=== PATIENT | female | born 1940 | race Caucasian/White ===

== ENCOUNTER 2019-05-05 17:35 | Emergency (ER) | payer OTHER, MEDICAID ==
[~2019-05-05] VITALS: Ht 157.5 cm; Wt 70.0 kg
[~2019-05-05 17:35] MED LIST: AMLO-147 PO; BENA40TA56 PO; CIPR500T4 PO; HYDR-762 PO; MECL25TA2 PO; METF-480 PO; ONDA4TAB35 PO; SIMV10TA PO
[2019-05-05 17:40] VITALS: Ht 157.5 cm; Wt 70.0 kg
--- NOTE | 2019-05-05 19:02 | ERD ---
ER Documentation Chief Complaint Chief Complaint bilateral eyes redness and pain/ vomitting; dizziness HPI 78-year-old female history of CVA, diabetes, hypertension and hyperlipidemia presents to the ED complaining of dizziness with nausea and vomiting. Patient was in her usual state of health until approximately 2 weeks ago when she developed redness and itching to both her eyes. Denies visual changes or pain. She was seen in urgent care twice and diagnosed with allergic conjunctivitis and treated with "drops" but symptoms have not improved significantly. Last night experience subjective fevers and chills. Denies URI symptoms, shortness of breath, cough. No dysuria, polyuria, hematuria or flank pain. This afternoon his periods acute onset of dizziness which she describes as the room spinning with nausea and one episode of nonbloody nonbilious emesis. Symptoms are slightly relieved by immobility with her eyes closed and worsened with head movement. Mild, occipital headache but denies focal weakness or numbness. ROS All systems reviewed and are negative except as per history of present illness. Medications Home Meds Active Scripts Meclizine Hcl* (Antivert*) 25 Mg Tablet, 25 MG PO Q6H PRN for dizziness, #10 TAB Prov:DANIEL NEWTON MD 02/29/16 Ondansetron Hcl* (Zofran* ODT) 4 mg -ODT Tab.disper, 4 MG PO Q6 PRN for NAUSEA AND/OR VOMITING, #30 TAB Prov:DANIEL NEWTON MD 02/29/16 Hydrocodone Bit-Acetaminophen* ([place]*) 10-325 Mg Tablet, 1 TAB PO Q6 PRN for PAIN, #7 TAB Prov:DANIEL NEWTON MD 02/29/16 Ciprofloxacin Hcl* (Ciprofloxacin Hcl*) 500 Mg Tablet, 500 MG PO BID for 7 Days, TAB Prov:DANIEL NEWTON MD 02/29/16 Reported Medications Amlodipine Besylate* (Amlodipine Besylate*) 10 Mg Tablet, 10 MG PO DAILY, #30 TAB 02/29/16 Benazepril Hcl* (Benazepril Hcl*) 40 Mg Tablet, 40 MG PO DAILY, #30 TAB 02/29/16 Simvastatin* (Zocor*) 10 Mg Tablet, 10 MG PO QHS, #30 TAB 02/29/16 Metformin* (Glucophage*) 850 Mg Tablet, 850 MG PO BID WITH MEALS, #30 TAB 02/29/16 Allergies Allergies: Coded Allergies: No Known Allergy (Unverified , 02/29/16) PMhx/Soc Reviewed in chart. As per HPI. History of Surgery: Yes (, gallbladder, appendix) Hx Cardiac Disorders: Yes (htn) Hx Miscellaneous Medical Probl: Yes (dm) Hx Alcohol Use: No Hx Substance Use: No Hx Tobacco Use: No Smoking Status: Never smoker FmHx No sudden cardiac or cancer Physical Exam Vitals Vital Signs Date Temp Pulse Resp B/P (MAP) Pulse Ox O2 O2 Flow FiO2 Time Delivery Rate 05/05/19 56 16 135/65 100 Room Air 21:35 (88) 05/05/19 98.6 76 20 125/63 97 17:40 (83) Physical Exam Const: Mild distress. Head: Atraumatic Eyes: Bilateral conjunctival injection. Pupils equal react to light. Extraocular movements are intact. No nystagmus. Bilateral arcus senilis. ENT: Normal External Ears, Nose and Mouth. Neck: Full range of motion. Carotids 2+ bilaterally without bruits. No JVD. No meningismus. Resp: Breath sounds are equal and clear to auscultation bilaterally Cardio: Regular rate and rhythm, no murmurs Abd: Soft, non tender, non distended. Normal bowel sounds Skin: No petechiae or rashes Back: No midline or flank tenderness Ext: No cyanosis, or edema Neur: Awake and alert. Cranial nerves II through XII are grossly intact. Motor and sensory equal bilaterally. No dysdiadochokinesis. Psych: Anxious but not depressed. Result Diagram: 05/05/19193905/05/191939 Results 24 hrs Laboratory Tests Test 05/05/19 19:40 05/05/19 19:47 White Blood Count 9.3 10^3/ul Red Blood Count 4.20 10^6/ul Hemoglobin 13.5 g/dl Hematocrit 39.8 % Mean Corpuscular Volume 94.8 fl Mean Corpuscular Hemoglobin 32.1 pg Mean Corpuscular Hemoglobin Concent 33.9 g/dl Red Cell Distribution Width 12.3 % Platelet Count 340 10^3/UL Mean Platelet Volume 8.4 fl Immature Granulocytes % 0.300 % Neutrophils % 62.9 % Lymphocytes % 28.0 % Monocytes % 7.4 % Eosinophils % 1.1 % Basophils % 0.3 % Nucleated Red Blood Cells % 0.0 /100WBC Immature Granulocytes # 0.030 10^3/ul Neutrophils # 5.9 10^3/ul Lymphocytes # 2.6 10^3/ul Monocytes # 0.7 10^3/ul Eosinophils # 0.1 10^3/ul Basophils # 0.0 10^3/ul Nucleated Red Blood Cells # 0.0 10^3/ul Erythrocyte Sedimentation Rate 32 mm/Hr Urine Color ZEN Urine Clarity CLOUDY Urine pH 5.0 Urine Specific [place] 1.017 Urine Ketones NEGATIVE mg/dL Urine Nitrite NEGATIVE mg/dL Urine Bilirubin NEGATIVE mg/dL Urine Urobilinogen NEGATIVE mg/dL Urine Leukocyte Esterase 3+ Mata/ul Urine Microscopic RBC 35 /HPF Urine Microscopic WBC 131 /HPF Urine Squamous Epithelial Cells MODERATE /HPF Urine Bacteria FEW /HPF Urine Mucus FEW /HPF Urine Hemoglobin NEGATIVE mg/dL Urine Glucose NEGATIVE mg/dL Urine Total Protein NEGATIVE mg/dl Sodium Level 138 mmol/L Potassium Level 3.9 mmol/L Chloride Level 102 mmol/L Carbon Dioxide Level 27 mmol/L Anion Gap 9 Blood Urea Nitrogen 16 mg/dl Creatinine 1.25 mg/dl Est Glomerular Filtrat Rate mL/min mL/min Glucose Level 133 mg/dl Calcium Level 8.8 mg/dl Troponin I < 0.012 ng/ml Bedside Glucose 132 mg/dL Current Medications Medications Dose Sig/Cari Start Time Status Last (Trade) Ordered Route PRN Stop Time Admin Dose Reason Admin Sodium 500 ml @ Q1H STAT 05/05/19 DC 05/05/19 Chloride 500 mls/hr IV 19:21 19:37 05/05/19 20:20 Ondansetron 4 mg ONCE STAT 05/05/19 DC 05/05/19 HCl (Zofran IV 19:21 19:37 Inj) 05/05/19 19:24 Ketorolac 10 mg ONCE STAT 05/05/19 DC 05/05/19 Tromethamine IV 19:21 19:37 (Toradol) 05/05/19 19:24 Meclizine 25 mg ONCE ONCE 05/05/19 DC 05/05/19 HCl PO 19:30 19:37 (Antivert) 05/05/19 19:31 Ceftriaxone 50 ml @ ONCE ONCE 05/05/19 DC 05/05/19 Sodium 100 mls/hr IVPB 21:30 21:19 05/05/19 21:59 Procedures/MDM DOCUMENTS REVIEWED: ED nurse, prior records. LAB INTERPRETATION: [] EKG: EKG: Time: 1934. Sinus rhythm. Ventricular rate 60, normal FL and QRS intervals. No acute ST segment elevation or depression. No axis deviation or ec topy. My Interpretation: Normal EKG IMAGING: PROCEDURE: CT Brain without contrast. CLINICAL INDICATION: Headache TECHNIQUE: A CT of the brain was performed on a multidetector CT scanner utilizing axial imaging from the skull base through the vertex without IV contrast. Multiplanar reformatted images were made. Images were reviewed on a PACS workstation. The CTDIvol is 39 mGy and the DLP is 634 mGycm. DICOM images are available. One or more of the following dose reduction techniques were utilized: 1.) Automated exposure control 2.) Adjustment of the mA +/- kV according to patient's size 3.) Use of iterative reconstruction technique. COMPARISON: Head CT February 29, 2016 FINDINGS: There is no intracranial hemorrhage, mass effect, or midline shift. No extra- axial fluid collection is seen. There is mild to moderate diffuse cerebral volume loss with sulcal and ventricular dilatation. Ventricles are of normal configuration.. There is mild white matter disease in both cerebral hemispheres. No associated mass effect is present. the burger white matter differentiation appears well-preserved. The visualized paranasal sinuses and osseous structures are grossly unremarkable. IMPRESSION: No intracranial hemorrhage, mass or evidence of acute transcortical infarct. Atrophy. Mild white matter disease compatible with chronic small vessel ischemia. .Timo Engle MD, MD Date Time Electronically viewed and signed by .Timo Engle MD, MD on 05/05/2019 20:28 .A/ ED COURSE: [] REEXAMINATION/REEVALUATION: Time: 22:20. Significantly improved. Feels better and request discharge. Observation Note: Time: 3 hours Family Hx: No Hypertension Evaluation: Multiple exams showed improving symptoms and no evidence of MEDICAL DECISION MAKIN-year-old female history of diabetes, hypertension and hyperlipidemia presents to the ED complaining of dizziness with nausea and vomiting. Shared decision-making with the patient and her daughter. Admission recommended but they prefer discharge with a trial of oral antibiotics. Stable for discharge with precautionary instructions and mandatory, urgent outpatient follow-up as counseled. Counseled patient and family regarding diagnostic workup, diagnosis and need for followup. Understands to return to ED if symptoms recur, worsen or any other concerns. Departure Diagnosis: Primary Impression: Vomiting Vomiting type: unspecified Vomiting Intractability: non-intractable Nausea presence: with nausea Qualified Codes: R11.2 - Nausea with vomiting, unspecified Additional Impressions: Acute UTI Headache Headache type: tension-type Headache chronicity pattern: unspecified pattern Intractability: not intractable Qualified Codes: G44.209 - Tension-type headache, unspecified, not intractable Dizziness Condition: Stable MAYURI JAY MD May 05, 2019 19:02
[2019-05-05] MEDS ORDERED: ONDANSETRON 4 MG INJ IV STA (19:21)
[2019-05-05] MEDS ORDERED: KETOROLAC 30 MG INJ IV STA (19:21)
[2019-05-05] MEDS ORDERED: SOD CHLORIDE 0.9% 500 ML IV STA (19:21)
[2019-05-05] MEDS ORDERED: MECLIZINE 12.5 MG TAB PO ONE (19:30)
[2019-05-05] MEDS ORDERED: CEFTRIAXONE 1 GM/50 ML (PMX) 50 ML IVPB ONE (21:30)
[2019-05-05] MEDS ORDERED: CEPH-443 PO (22:30)
[2019-05-05] MEDS ORDERED: ONDA4TAB14 PO (22:30)
[2019-05-05 22:43] VITALS: BP 144/65; PULSE 54; RESP 16
== END 2019-05-05 22:52 | disposition home or self-care (01) ==
LOC: E/R 17:35
DX: N39.0 Urinary tract infection, site not specified (principal); I10 Essential (primary) hypertension; E11.9 Type 2 diabetes mellitus without complications; G44.209 Tension-type headache, unspecified, not intractable; Z79.84 Long term (current) use of oral hypoglycemic drugs; Z86.73 Personal history of transient ischemic attack (TIA), and cerebral infarction without residual deficits
CPT/HCPCS: 70450; 80048; 81001; 82962; 84484; 85025; 85651; 87086; 93005; 96374; 96375; 99285; J0696; J1885; J2405; J7040